=== PATIENT | female | born 1995 | race Caucasian/White ===

== ENCOUNTER 2022-03-14 12:16 | Emergency (ER) | payer MEDICAID ==
[~2022-03-14] VITALS: Ht 165.1 cm; Wt 68.2 kg
[2022-03-14] MEDS ORDERED: dexamethasone sod phosphate 10mg/ml inj PO STA (14:11)
[2022-03-14] MEDS ORDERED: LIDO20SO16 PO (14:15)
[2022-03-14] MEDS ORDERED: CEPH250T PO (14:15)
[2022-03-14] MEDS ORDERED: NAPR-56 PO (14:15)
[2022-03-14 16:47] VITALS: BP 152/101
== END 2022-03-14 14:58 | disposition home or self-care (01) ==
LOC: ER 12:17
DX: J02.0 Streptococcal pharyngitis (principal); R13.10 Dysphagia, unspecified; R51.9 Headache, unspecified; Z72.89 Other problems related to lifestyle; Z79.2 Long term (current) use of antibiotics; Z79.899 Other long term (current) drug therapy
CPT/HCPCS: 87880; 99283; J1100